=== PATIENT | male | born 1970 | race Caucasian/White ===

== ENCOUNTER 2017-11-17 22:40 | Emergency (ER) | payer OTHER ==
[~2017-11-17] VITALS: Ht 182.9 cm; Wt 109.1 kg
[2017-11-17 23:33] LABS: BASOPHILS % (AUTO) 1.8 % (0.0-2.0); EOSINOPHILS % (AUTO) 0.4 % (1.0-6.0); HEMOGLOBIN 11.4 g/dL (13.5-17.5); LYMPHOCYTES # (AUTO) 0.6 K/uL (1.0-4.8); LYMPHOCYTES % (AUTO) 18.8 % (22.0-44.0); MEAN CORPUSCULAR HEMOGLOBIN 36.3 pg (26.0-34.0); MEAN CORPUSCULAR HGB CONC 34.7 G/dL (31.0-37.0); MEAN CORPUSCULAR VOLUME 105 fL (80-100); MONOCYTES # (AUTO) 0.4 K/uL (0.1-1.0); MONOCYTES % (AUTO) 12.8 % (2.0-9.0); NEUTROPHILS # (AUTO) 2.2 K/uL (1.8-7.7); NEUTROPHILS % (AUTO) 66.2 % (40.0-70.0); RED BLOOD CELL COUNT(AUTO) 3.14 MIL/uL (4.50-5.90); RED CELL DISTRIBUTION WIDTH 14.7 % (11.5-14.5)
[2017-11-17 23:37] LABS: ANION GAP 7 mmol/L (8-16); CALCIUM, TOTAL 7.4 mg/dL (8.8-10.5); CARBON DIOXIDE 25 mmol/L (22-29); CHLORIDE 98 mmol/L (98-107); CREATININE 0.83 mg/dL (0.60-1.30); GLOMERULAR FILTR. RATE CALC > 60 mL/min (>60); GLUCOSE,RANDOM 103 mg/dL (70-110); SODIUM SERUM 130 mmol/L (136-145); UREA NITROGEN, BLOOD 7 mg/dL (7-18)
[2017-11-17 23:42] LABS: ALANINE AMINOTRANSFERASE 102 U/L (12-78); ALBUMIN 2.3 g/dL (3.4-5.0); ALKALINE PHOSPHATASE 161 U/L (46-116); ASPARTATE AMINOTRANSFERASE 246 U/L (15-37); BILIRUBIN,TOTAL 3.2 mg/dL (0.1-1.0); LIPASE 190 U/L (73-393); TOTAL PROTEIN, SERUM 7.3 g/dL (6.4-8.2)
[2017-11-17] MEDS ORDERED: ONDANSETRON HCL 4 MG/2 ML VIAL IVP ONE (23:45)
[2017-11-17] MEDS ORDERED: MORPHINE SULFATE 4 MG/ML SYRINGE IVP ONE (23:45)
[2017-11-17 23:52] LABS: PLATELET COUNT (AUTO) 27 K/uL (150-450)
[2017-11-18 00:32] LABS: GLUCOSE,POINT OF CARE 109 MG/DL (70-110)
[2017-11-18] MEDS ORDERED: KETOROLAC TROMETHAMINE 30 MG/ML VIAL IVP ONE (01:45)
[2017-11-18 02:04] LABS: INFLUENZA TYPE A NEGATIVE FOR TYPE A (NEGATIVE); INFLUENZA TYPE B POSITIVE FOR TYPE B (NEGATIVE)
[2017-11-18 02:38] VITALS: BP 144/93
== END 2017-11-18 02:41 | disposition home or self-care (01) ==
LOC: EMS 22:42
DX: J11.1 Influenza due to unidentified influenza virus with other respiratory manifestations (principal); R10.11 Right upper quadrant pain; F17.210 Nicotine dependence, cigarettes, uncomplicated; F12.90 Cannabis use, unspecified, uncomplicated; Z85.038 Personal history of other malignant neoplasm of large intestine
CPT/HCPCS: 36415; 71010; 76705; 80053; 82948; 82962; 83690; 84484; 85025; 87804; 96374; 96375; 99285; J1885; J2270; J2405